=== PATIENT | male | born 1945 | race Caucasian/White ===

== ENCOUNTER → 2017-06-26 | Day surgery (SDC) | payer MEDICARE ==
[~2017-06-26] MED LIST: ASPI81TA82 PO; ATEN-100 PO; ATROPINE SULFATE 1% OPHT SOLN 2 ML BTL ONE; COLC1TAB7 PO; COQ-200C PO; DEXAMETHASONE SOD PHOS 4 MG/ML VIAL ONE; DEXTROSE 50% IN WATER 50 ML SYRINGE ONE; EPINEPHrine HCL (1:1000) 1 MG/ML VIAL ONE; FLURBIPROFEN 0.03% OPHT SOLN 2.5 ML BTL ONE; GLIM1TAB PO; GLUCTAB PO; HYALURONIDASE/LIDOCAINE/BUPIVACAINE 5 ML SYR ONE; HYDR-2768 PO; LACTATED RINGER'S 1000 ML INJ 1,000 ML ONE; LISI-360 PO; NEOMYCIN/POLYMYXIN/DEXAMETHASONE OPTH OINT 3.5 GM TUBE ONE; ONDANSETRON HCL 4 MG/2 ML VIAL IV PUSH ONE; PHENYLEPHRINE HCL 2.5 % OPTH SOLN 15 ML BTL ONE; PROPOFOL 200 MG/20 ML AMP IV ONE; RANI150 PO; SODIUM CHLORIDE 0.9% INJ 10 ML ONE; TETRACAINE 0.5% OPTH SOLN 15 ML BTL ONE; TROPICAMIDE 1% OPHT SOLN 15 ML BTL ONE; [UNRECOGNIZED DRUG - CODE] PO; ceFAZolin INJ 1,000 MG VIAL ONE
--- NOTE | 2017-07-16 11:30 | MP ---
cc: Teddy Dukes MD DATE OF OPERATION: 06/26/2017 PREOPERATIVE DIAGNOSIS: Epiretinal membrane, right eye. POSTOPERATIVE DIAGNOSIS: Epiretinal membrane, right eye. PROCEDURE PERFORMED: Pars plana vitrectomy, membrane peeling right eye. ANESTHESIA: MAC. SURGEON: Teddy Dukes MD COMPLICATIONS: None. PROCEDURE IN DETAIL: After informed consent was obtained, the patient was brought to the operating room, placed under brief anesthesia with propofol. 10 cc of 50/50 mixture of 0.75% Marcaine and 2% lidocaine was placed in a modified [place] Lint lid block as well as peribulbar injection. The patient was then prepared and draped in usual sterile fashion. A wire lid speculum was placed in the patient's right eye. 23-gauge vitrectomy cannulas were then placed in the lower temporal, superotemporal and superonasal quadrants 3 mm posterior to the corneoscleral limbus. Infusion cannula was placed lower temporally. A core vitrectomy was then performed. The vitrectomy is carried out as far as possible to vitreous base. Attention was then turned to the posterior pole where there was an epiretinal membrane covering the surface of the macula. It was carefully peeled off the macula with intraocular forceps. The same was then done for the internal limiting membrane. Careful indirect ophthalmoscopy with scleral depression was then performed and no peripheral retinal breaks were noted. The three vitrectomy cannulas were then removed. Subconjunctival injections of dexamethasone and Ancef were placed. An Atropine drop, Maxitrol ointment and a patch shield were then applied. The patient tolerated the procedure well. There were no complications. [facility] will follow [facility]. Teddy Dukes MD TAB/TL , 10:59 AM , 11:29 AM
== END | disposition home or self-care (01) ==
LOC: ESDC 12:46
PROVIDERS: ATTEND Ophthalmology Retina Specialist
DX: H35.371 Puckering of macula, right eye (principal)
CPT/HCPCS: 00145; 67042; J0171; J0690; J1100; J2405; J3010; J7120